=== PATIENT | female | born 1945 | race Caucasian/White ===

== ENCOUNTER → 2016-03-07 | Outpatient (CLI) | payer OTHER ==
[~2016-03-07] MED LIST: ADVIN50050 INH; ASPI-232 PO; IBUP-1050 PO; LOVA20TA4 PO; SPRIN/30 INH; THEO200T27 PO
[2016-03-07 12:05] LABS: BASO % 0.6 %; BASO ABS # 0.04 K/uL (0-0.2); COMPLETE YES; EOS % 4.4 %; HEMATOCRIT 41.1 % (37-47); IG% 0.2 %; LYMPH % 33.4 %; LYMPH ABS # 2.21 K/uL (1.2-3.4); MEAN CELL VOLUME 94.7 fL (80-100); MEAN CORPUSCULAR HGB CONC 33.8 g/dl (32-36); MEAN PLATELET VOLUME 11.6 fL (7.4-10.4); MONO % 5.9 %; NEUT % 55.5 %; PLATELET COUNT 236 K/uL (130-400); RED BLOOD COUNT 4.34 M/uL (4.2-5.4); WHITE BLOOD COUNT 6.61 K/uL (4.8-10.8)
[2016-03-07 12:21] LABS: C-REACTIVE PROTEIN 0.43 mg/dl (0-0.29); RHEUMATOID FACTOR < 10.0 U/mL (0-15)
[2016-03-07 17:46] LABS: LYME DISEASE AB IGG NEG (NEG)
[2016-03-07 17:47] LABS: LYME DISEASE AB IGM NEG (NEG)
[2016-03-10 14:20] LABS: HLA-B27** TC 528X NEGATIVE (NEGATIVE)
== END | disposition home or self-care (01) ==
LOC: C.LABBC 10:03
PROVIDERS: ATTEND Orthopaedic Surgery
DX: M25.40 Effusion, unspecified joint (principal); M25.50 Pain in unspecified joint

== ENCOUNTER → 2016-04-22 | Outpatient (CLI) | payer OTHER ==
[2016-04-22 12:43] LABS: BASO % 0.5 %; BASO ABS # 0.03 K/uL (0-0.2); COMPLETE YES; EOS % 1.9 %; HEMATOCRIT 40.8 % (37-47); IG% 0.2 %; LYMPH % 28.1 %; LYMPH ABS # 1.76 K/uL (1.2-3.4); MEAN CELL VOLUME 94.4 fL (80-100); MEAN CORPUSCULAR HEMOGLOBIN 31.9 pg (25-34); MEAN CORPUSCULAR HGB CONC 33.8 g/dl (32-36); MEAN PLATELET VOLUME 11.6 fL (7.4-10.4); MONO % 8.3 %; PLATELET COUNT 233 K/uL (130-400); RED BLOOD COUNT 4.32 M/uL (4.2-5.4); WHITE BLOOD COUNT 6.27 K/uL (4.8-10.8)
[2016-04-22 12:48] LABS: ESTIMATED AVERAGE GLUCOSE 111 mg/dl; HA1C FLAG Normal (Normal)
[2016-04-22 13:16] LABS: ALT/SGPT 18 U/L (12-78); BLOOD UREA NITROGEN 7 mg/dl (7-18); BUN/CREATININE RATIO 9.6 (10-20); CALCIUM 9.6 mg/dl (8.5-10.1); CARBON DIOXIDE 24 mmol/L (21-32); CHLORIDE 109 mmol/L (98-107); CHOLESTEROL 181 mg/dl (0-200); CREATININE 0.75 mg/dl (0.60-1.20); GLUCOSE 98 mg/dl (70-99); POTASSIUM 3.9 mmol/L (3.5-5.1); SODIUM 142 mmol/L (136-145); TRIGLYCERIDES 132 mg/dl (0-150); VERY LOW DENSITY LIPOPROT CALC 26 mg/dl
[2016-04-22 13:26] LABS: ALB/GLOB RATIO 1.3 (0.9-2); ALKALINE PHOSPHATASE 103 U/L (45-117); AST/SGOT 19 U/L (15-37); CHOLESTEROL/HDL RATIO 2.6; HDL CHOLESTEROL 69 mg/dl; LDL CHOLESTEROL CALCULATED 86 mg/dl
== END | disposition home or self-care (01) ==
LOC: C.LABBFT 08:03
PROVIDERS: ATTEND Internal Medicine
DX: R73.01 Impaired fasting glucose (principal)

== ENCOUNTER → 2016-05-16 | Outpatient (CLI) | payer OTHER ==
--- NOTE | 2016-05-16 09:13 | DIAGNOSTIC IMAGING REPORT ---
LEFT HIP 2 VIEWS HISTORY: Left hip pain. COMPARISON: None. FINDINGS: There is no fracture or dislocation. Soft tissues are unremarkable. The bones are osteopenic. Small sclerotic foci within the left ischial tuberosity and femoral head favor bone islands. Cartilage spaces are maintained for age. IMPRESSION: No fracture or dislocation within the left hip. Electronically signed by: Minesh Haider M.D. 05/16/2016 9:12 AM Dictated Date/Time: 05/16/2016 9:09 AM
--- NOTE | 2016-05-16 09:39 | DIAGNOSTIC IMAGING REPORT ---
LUMBAR SPINE 5 VIEWS HISTORY: Left hip pain. Sciatica. COMPARISON: Lumbar spine 10/08/2012. FINDINGS: No acute fractures within the lumbar spine. Mild anterior wedging within the T10 vertebral body. The sacrum appears intact. No subluxation. Mild disc space narrowing at L5-S1 and moderate facet degenerative changes within the lower lumbar spine. This remains unchanged. IMPRESSION: No acute fracture or subluxation within the lumbar spine. Old T10 mild compression deformity. Electronically signed by: Minesh Haider M.D. 05/16/2016 9:38 AM Dictated Date/Time: 05/16/2016 9:24 AM
== END | disposition home or self-care (01) ==
LOC: C.RAD1850 08:48
PROVIDERS: ATTEND Internal Medicine
DX: M25.552 Pain in left hip (principal); M54.30 Sciatica, unspecified side

== ENCOUNTER → 2016-05-27 | Outpatient (CLI) | payer OTHER ==
--- NOTE | 2016-05-27 10:56 | DIAGNOSTIC IMAGING REPORT ---
CHEST CT WITHOUT CONTRAST CT DOSE: 184.85 mGycm HISTORY: Pulmonary nodules F/U SCAN TECHNIQUE: Multiaxial CT images of the chest were performed without contrast. COMPARISON: 03/12/2015 FINDINGS: Study is essentially stable compared to the prior exam. Pleural-based pulmonary nodularity right lung is stable. Subtle micronodularity of the lingula as well as superior segment right lower lobe is slightly variable but nevertheless stable. No new or interval findings are present. Limited evaluation the upper abdomen is unremarkable. IMPRESSION: Stable exam. Unchanging scattered parenchymal nodularity. No evidence for new interval or progressive process. Electronically signed by: Valdo Munoz M.D. 05/27/2016 10:55 AM Dictated Date/Time: 05/27/2016 10:48 AM
== END | disposition home or self-care (01) ==
LOC: C.CTS 10:30
PROVIDERS: ATTEND Internal Medicine Pulmonary Disease
DX: R91.1 Solitary pulmonary nodule (principal)

== ENCOUNTER → 2016-10-31 | Outpatient (CLI) | payer OTHER ==
[2016-10-31 12:15] LABS: HEMATOCRIT 44.6 % (37-47); MEAN CELL VOLUME 98.5 fL (80-100); MEAN CORPUSCULAR HEMOGLOBIN 31.8 pg (25-34); MEAN CORPUSCULAR HGB CONC 32.3 g/dl (32-36); MEAN PLATELET VOLUME 11.7 fL (7.4-10.4); PLATELET COUNT 255 K/uL (130-400); RED BLOOD COUNT 4.53 M/uL (4.2-5.4); WHITE BLOOD COUNT 6.34 K/uL (4.8-10.8)
[2016-10-31 12:34] LABS: ALT/SGPT 13 U/L (12-78); BLOOD UREA NITROGEN 7 mg/dl (7-18); CALCIUM 9.6 mg/dl (8.5-10.1); CARBON DIOXIDE 26 mmol/L (21-32); CHLORIDE 106 mmol/L (98-107); CHOLESTEROL 189 mg/dl (0-200); CREATININE 0.71 mg/dl (0.60-1.20); GLUCOSE 105 mg/dl (70-99); SODIUM 140 mmol/L (136-145); TRIGLYCERIDES 132 mg/dl (0-150); VERY LOW DENSITY LIPOPROT CALC 26 mg/dl
[2016-10-31 12:43] LABS: ESTIMATED AVERAGE GLUCOSE 120 mg/dl; HA1C FLAG Normal (Normal)
[2016-10-31 12:44] LABS: ALB/GLOB RATIO 1.3 (0.9-2); ALKALINE PHOSPHATASE 111 U/L (45-117); AST/SGOT 14 U/L (15-37); CHOLESTEROL/HDL RATIO 2.6; HDL CHOLESTEROL 72 mg/dl; LDL CHOLESTEROL CALCULATED 91 mg/dl
== END | disposition home or self-care (01) ==
LOC: C.LABBFT 07:52
PROVIDERS: ATTEND Internal Medicine
DX: R73.01 Impaired fasting glucose (principal); I10 Essential (primary) hypertension; E78.00 Pure hypercholesterolemia, unspecified

== ENCOUNTER → 2016-12-08 | Outpatient (CLI) | payer OTHER | END | disposition home or self-care (01) | LOC: C.LAB1850 09:25 | PROVIDERS: ATTEND Internal Medicine Pulmonary Disease | DX: J44.9 Chronic obstructive pulmonary disease, unspecified (principal) ==

== ENCOUNTER → 2017-05-18 | Outpatient (CLI) | payer OTHER ==
[2017-05-18 12:39] LABS: HEMATOCRIT 41.4 % (37-47); HEMOGLOBIN 13.7 g/dL (12.0-16.0); MEAN CELL VOLUME 98.6 fL (80-100); MEAN CORPUSCULAR HEMOGLOBIN 32.6 pg (25-34); MEAN CORPUSCULAR HGB CONC 33.1 g/dl (32-36); MEAN PLATELET VOLUME 11.1 fL (7.4-10.4); PLATELET COUNT 231 K/uL (130-400); RED CELL DISTRIBUTION WIDTH CV 14.7 % (11.5-14.5); RED CELL DISTRIBUTION WIDTH SD 52.7 fL (36.4-46.3); WHITE BLOOD COUNT 5.58 K/uL (4.8-10.8)
[2017-05-18 13:17] LABS: HEMOGLOBIN A1C 5.6 % (4.5-5.6)
[2017-05-18 14:00] LABS: ALBUMIN 3.8 gm/dl (3.4-5.0); ALT/SGPT 24 U/L (12-78); AST/SGOT 26 U/L (15-37); BLOOD UREA NITROGEN 8 mg/dl (7-18); CALCIUM 9.2 mg/dl (8.5-10.1); CARBON DIOXIDE 25 mmol/L (21-32); CREATININE 0.76 mg/dl (0.60-1.20); GLUCOSE 107 mg/dl (70-99); POTASSIUM 3.9 mmol/L (3.5-5.1); SODIUM 138 mmol/L (136-145)
[2017-05-18 14:02] LABS: ALKALINE PHOSPHATASE 102 U/L (45-117); CHOLESTEROL 186 mg/dl (0-200); LDL CHOLESTEROL CALCULATED 90 mg/dl
== END | disposition home or self-care (01) ==
LOC: C.LABBFT 07:31
PROVIDERS: ATTEND Internal Medicine
DX: R73.01 Impaired fasting glucose (principal); J44.9 Chronic obstructive pulmonary disease, unspecified; E78.00 Pure hypercholesterolemia, unspecified

== ENCOUNTER → 2017-09-17 | Outpatient (CLI) | payer OTHER ==
[~2017-09-17] MED LIST changes: +HYDR-5688 PO; -IBUP-1050 PO; +LOSA1TAB38 PO; +NITR-90 PO; -SPRIN/30 INH; -THEO200T27 PO; +THEO400T PO
== END | disposition home or self-care (01) ==
LOC: C.LABSPEC 17:05
PROVIDERS: ATTEND Urology
DX: N31.9 Neuromuscular dysfunction of bladder, unspecified (principal); R33.9 Retention of urine, unspecified

== ENCOUNTER → 2017-09-18 | Outpatient (CLI) | payer OTHER ==
--- NOTE | 2017-09-18 11:13 | DIAGNOSTIC IMAGING REPORT ---
CHEST 2 VIEWS ROUTINE CLINICAL HISTORY: 72 years-old Female presenting with preoperative assessment. TECHNIQUE: PA and lateral views of the chest were obtained. COMPARISON: 11/30/[address] from 05/27/2016. FINDINGS: Atherosclerosis of the aortic arch. Cardiac silhouette normal in size. Hyperinflated lungs. Heterogeneous lung markings with relative radiolucency of the upper lobes. No focal opacity. No pleural effusion or pneumothorax. Osteopenia may be present. Mildly exaggerated thoracic kyphosis due to a mild to moderate compression deformity of one of the mid to lower thoracic vertebral bodies. At this level, there is over 30% anterior height loss. Upper abdomen normal. IMPRESSION: 1. Findings suggest emphysema. No focal infiltrate to suggest pneumonia. 2. Mild to moderate compression deformity of one of the mid to lower thoracic vertebral bodies. This is unchanged from prior CT. Electronically signed by: Ravi Wong M.D. 09/18/2017 11:12 AM Dictated Date/Time: 09/18/2017 11:09 AM
[2017-09-18 11:43] LABS: INR 0.9 (0.9-1.1); PTT PATIENT 28.3 SECONDS (21.0-31.0)
== END | disposition home or self-care (01) ==
LOC: C.CPL 07:07
PROVIDERS: ATTEND Orthopaedic Surgery Orthopaedic Surgery of the Spine
DX: Z01.810 Encounter for preprocedural cardiovascular examination (principal); Z01.811 Encounter for preprocedural respiratory examination; Z01.812 Encounter for preprocedural laboratory examination

== ENCOUNTER 2017-09-28 05:42 | Inpatient (IN) | payer OTHER ==
[2017-09-16 08:23] VITALS: BMI 19.0
[2017-09-18 09:59] VITALS: BMI 19.0
--- NOTE | 2017-09-18 10:23 | PAT Medication Instructions ---
Service Date Sep 18, 2017. Current Home Medication List Aspirin (Aspir-81), 1 TAB PO QAM Fluticasone Prop/Salmeterol (Advair Diskus 500-50 Mcg/Dose), 1 PUFF INH BID Hydrocodone/Acetaminophen 5MG/325MG ([place] 5MG/325MG), 1 TAB PO UD PRN for Pain Losartan Potassium (Cozaar), 100 MG PO QAM Lovastatin (Mevacor), 20 MG PO HS Theophylline (Theophylline ER), 200 MG PO BID Medication Instructions For Your Scheduled Surgery -Instructions per surgeon: Aspirin (Aspir-81), 1 TAB PO QAM - Hold the following medications the morning of surgery: Losartan Potassium (Cozaar), 100 MG PO QAM - Take the following medications the morning of surgery with a sip of water: Fluticasone Prop/Salmeterol (Advair Diskus 500-50 Mcg/Dose), 1 PUFF INH BID Hydrocodone/Acetaminophen 5MG/325MG ([place] 5MG/325MG), 1 TAB PO UD PRN for Pain (if needed, may be taken up to four hours before surgery) Theophylline (Theophylline ER), 200 MG PO BID - Take the following medications as scheduled the night before surgery: Fluticasone Prop/Salmeterol (Advair Diskus 500-50 Mcg/Dose), 1 PUFF INH BID Hydrocodone/Acetaminophen 5MG/325MG ([place] 5MG/325MG), 1 TAB PO UD PRN for Pain (if needed) Lovastatin (Mevacor), 20 MG PO HS Theophylline (Theophylline ER), 200 MG PO BID If you have any questions please call us at [phone] or [phone] or [phone]
--- NOTE | 2017-09-25 16:45 | HISTORY & PHYSICAL EXAMINATION ---
DATE OF ADMISSION: 09/28/2017 Preoperative history and physical for Thursday surgery. CHIEF COMPLAINT: Low back pain, bladder incontinence, lower extremity pain and weakness. HISTORY OF PRESENT ILLNESS: Carlie is a delightful. She is 72. She is severely compromised with stenosis of spine and urinary incontinence and bladder incontinence, particularly with stenosis, particularly 4-5. She denies any fevers, sweats, chills, other medical issues. PAST MEDICAL HISTORY: Includes rheumatoid arthritis, thyroid disease, high cholesterol, hypertension, asthma. PAST SURGICAL HISTORY: Eye surgery, lumbar surgery in the past, hysterectomy. ALLERGIES: LEVOFLOXACIN. FAMILY HISTORY: Heart disease. SOCIAL HISTORY: . Minimal alcohol. Moderate tobacco, 55 year 1 pack history. Little activity. REVIEW OF SYSTEMS: Positive for fatigue. Ear, nose and throat negative. Does admit to some swelling in the feet. Positive asthma. Positive shortness of breath. No nausea, vomiting. Frequent urination and urinary incontinence. She has some lower extremity difficulty, weakness and easy bruisability. MEDICATIONS: Lovastatin, Advair, Spiriva, ibuprofen. OBJECTIVE: GENERAL: She is alert, oriented. She is petite. VITAL SIGNS: She is 5 feet 2 inches. She is 110 pounds. Blood pressure 130/80, pulse 80, respiratory rate 16. CARDIAC: Normal S1, S2, no S3. LUNGS: Clear to auscultation. No rales, rhonchi, or wheezing. ABDOMEN: Soft, nontender. Bowel sounds present. NEUROLOGIC: She has an indwelling Ann catheter. EXTREMITIES: Weak with atrophy of most muscle groups. IMAGES: Demonstrate severe stenosis of the spine, multilevel degenerative disc disease, severe stenosis 3-4, 4-5, degenerative scoliosis of spine. IMPRESSION: Delightful young lady with severe spinal stenosis of the spine and urinary incontinence. PLAN: Surgery laminectomy and fusion L3-L4 and L4-L5.
[~2017-09-28] VITALS: Ht 160 cm; Wt 49.5 kg
[2017-09-28] VITALS (8 sets, daily range): BP systolic 105–165; BP diastolic 60–87; PULSE 68–82; TEMP 36.2–37.1; O2SAT 96–100; Ht 160 cm; Wt 49.5 kg
[~2017-09-28 05:42] MED LIST changes: -NITR-90 PO
[2017-09-28] MEDS ORDERED: LACTATED RINGER'S 1000ML 1,000 ML IV SCH (06:00)
[2017-09-28] MEDS ORDERED: CeleBREX 200 MG CAP PO SCH (06:00)
[2017-09-28] MEDS ORDERED: CEFAZOLIN 2000MG IV PUSH 15 ML IV SCH (06:00)
[2017-09-28] MEDS ORDERED: NSS 1000ML IV SCH (06:00)
[2017-09-28] MEDS ORDERED: ACETAMINOPHEN IV 100 ML IV SCH (06:00)
[2017-09-28] MEDS ORDERED: BUPIVACAINE LIPOSOME 266 MG, BUPIVACAINE/EPINEPHRINE INJ 50 ML, SODIUM CHLORIDE 0.9% PF... INFIL SCH ×3 (06:00)
[2017-09-28] MEDS ORDERED: DEXAMETHASONE 4 MG TAB PO SCH (06:00)
[2017-09-28] MEDS ORDERED: NITR-90 PO (06:50)
[2017-09-28] MEDS ORDERED: VANCOMYCIN HCL 1000MG/20ML VIAL ONE (06:58)
[2017-09-28] MEDS ORDERED: GELATIN SPONGE SZ 100 ONE (06:59)
[2017-09-28] MEDS ORDERED: THROMBIN FOR SOLN 20000 UNIT KIT ONE (06:59)
[2017-09-28] MEDS ORDERED: BACITRACIN 50000 UNIT VIAL ONE (06:59)
[2017-09-28] MEDS ORDERED: BUPIVACAINE/EPINEPHRINE 0.5% MPF 1:200,000 30 ML VIAL ONE (07:00)
[2017-09-28] MEDS ORDERED: NEOSTIGMINE METHYLSULFATE 5 MG/5 ML SYR ONE (07:10)
[2017-09-28] MEDS ORDERED: PHENYLEPHRINE HCL INJ 10 MG/ML VIAL ONE (07:10)
[2017-09-28] MEDS ORDERED: LIDOCAINE HCL 2% 2 ML VIAL (20MG/ML) ONE (07:10)
[2017-09-28] MEDS ORDERED: DEXAMETHASONE SOD INJ 4 MG/ML VIAL ONE (07:10)
[2017-09-28] MEDS ORDERED: GLYCOPYRROLATE INJ 0.2 MG/ML VIAL ONE (07:10)
[2017-09-28] MEDS ORDERED: PROPOFOL IV EMULSION 10 MG/ML 20 ML VIAL ONE (07:10)
[2017-09-28] MEDS ORDERED: ONDANSETRON INJ 2 MG/ML 2 ML VIAL ONE ×2 (07:10→10:26)
[2017-09-28] MEDS ORDERED: SUCCINYLCHOLINE CHLORIDE 20 MG/ML 10 ML VIAL IV ONE (07:10)
[2017-09-28] MEDS ORDERED: EpHEDrine SULFATE INJ 50 MG/ML AMP ONE (07:10)
[2017-09-28] MEDS ORDERED: FENTANYL CITRATE INJ 50 MCG/1 ML 2 ML VIAL ONE (07:11)
--- NOTE | 2017-09-28 07:13 | History & Physical Bridge Note ---
H&P Re-Evaluation Bridge Note: I have examined the patient, reviewed the History & Physical and in the interval since the performance of the History & Physical I have noted the following changes of clinical significance: No changes noted
[2017-09-28] MEDS ORDERED: HYDROmorphone INJ 2 MG/ML SYR/VIAL ONE (08:18)
[2017-09-28] MEDS ORDERED: ALBUMIN HUMAN 5% 12.5 GM/250 ML VIAL IV ONE (09:07)
--- NOTE | 2017-09-28 10:09 | [facility] Post Operative Brief Note ---
Immediate Operative Summary Operative Date Sep 28, 2017. Pre-Operative Diagnosis Severe Spinal Stenosis and Urinary Incontinence Post-Operative Diagnosis Severe Spinal Stenosis and Urinary Incontinence Procedure(s) Performed Decompression L3-S1, L4-S1 Laminectomy and Fusion Surgeon Dr Burgess Principal Account Clerk Surgeon(s) Jerald Blakely PA-C Estimated Blood Loss 400cc Findings Consistent with Post-Op Diagnosis Specimens None per surgeon Anesthesia Type General Overlapping Procedure I was immediately available: during the entire case
[2017-09-28] MEDS ORDERED: SODIUM CHLORIDE 0.9% 1000ML 1,000 ML IV SCH (10:16)
[2017-09-28] MEDS ORDERED: NALOXONE HCL 0.4 MG/1 ML VIAL/CARP IV PRN ×2 (10:30→10:45)
[2017-09-28] MEDS ORDERED: METOCLOPRAMIDE HCL INJ 5 MG/ML 2 ML VIAL IV PRN (10:30)
[2017-09-28] MEDS ORDERED: LORAZEPAM INJ 1 MG in SYRINGE 0 ML IV PRN (10:30)
[2017-09-28] MEDS ORDERED: ACETAMINOPHEN 325 MG TAB PO PRN (10:30)
[2017-09-28] MEDS ORDERED: CEFAZOLIN IV 1,000 MG in DEXTROSE 5% 50ML 50 ML IV SCH (10:30)
[2017-09-28] MEDS ORDERED: MAGNESIUM HYDROXIDE SUSP 30 ML UDC PO PRN (10:30)
[2017-09-28] MEDS ORDERED: LORAZEPAM 1 MG TAB PO PRN (10:30)
[2017-09-28] MEDS ORDERED: PROMETHAZINE HCL INJ 12.5 MG in SODIUM CHLORIDE 0.9% 50ML 50 ML IV PRN ×2 (10:30→10:45)
[2017-09-28 10:45] LABS: HEMATOCRIT 30.5 % (37-47); HEMOGLOBIN 10.3 g/dL (12.0-16.0)
[2017-09-28] MEDS ORDERED: HYDROmorphone INJ 1 MG/ML SYR IV PRN (10:45)
[2017-09-28] MEDS ORDERED: ALBUTEROL 0.083% NEBU SOLN 3 ML VIAL INH PRN (10:45)
[2017-09-28] MEDS ORDERED: FLUMAZENIL 0.1 MG/1 ML 10 ML VIAL IV PRN (10:45)
[2017-09-28] MEDS ORDERED: LABETALOL HCL IV 5 MG/ML 20ML IV PRN (10:45)
[2017-09-28] MEDS ORDERED: EpHEDrine SULFATE INJ 50 MG/ML AMP IV PRN (10:45)
[2017-09-28] MEDS ORDERED: ONDANSETRON INJ 2 MG/ML 2 ML VIAL IV PRN (10:45)
[2017-09-28] MEDS ORDERED: ATROPINE SULFATE 0.1 MG/ML 5ML SYR IV PRN (10:45)
[2017-09-28] MEDS: HYDROmorphone HCL 0.5MG/ML 50 ML CASSETTE IV PRN ×2 (11:00→22:54)
--- NOTE | 2017-09-28 11:14 | DIAGNOSTIC IMAGING REPORT ---
SPINE ONE VIEW, ANY LEVEL HISTORY: 72 years-old Female L3-L4/L4-L5 LAMI AND FUSION status post laminectomy and fusion of the lower lumbar spine COMPARISON: Lumbar spine radiographs 09/11/2017 TECHNIQUE: Single crosstable lateral fluoroscopic image of the lumbar spine was obtained utilizing 3.5 seconds fluoroscopy time FINDINGS: Single image demonstrates laminectomy changes with placement of posterior pedicle screws at the L4, L5 and S1 levels. Alignment appears satisfactory. Multilevel spondylitic spurring. IMPRESSION: Fluoroscopic assistance as above. Please see operative report for further details. The above report was generated using voice recognition software. It may contain grammatical, syntax or spelling errors. Electronically signed by: Arnoldo Steven M.D. 09/28/2017 11:13 AM Dictated Date/Time: 09/28/2017 11:11 AM
--- NOTE | 2017-09-28 11:33 | OPERATIVE REPORT ---
DATE OF OPERATION: 09/28/2017 PREOPERATIVE DIAGNOSES: Severe stenosis L3-L4, L4-L5 lumbar spine with cauda equina symptoms, neurological deficit, bladder incontinence. POSTOPERATIVE DIAGNOSES: Severe stenosis L3-L4, L4-L5 lumbar spine with cauda equina symptoms, neurological deficit, bladder incontinence. PROCEDURES: 1. Laminectomy at L3-L4, L4-L5 and L5-S1, foraminotomies, partial facetectomies, decompression of the cauda equina. 2. Pedicle screw instrumentation, L4, L5 and S1. I felt that the L3-L4 level was not unstable. 3. Posterior fusion, L3, L4, and L5 lumbar spines with 2-level posterolateral fusion. COMPLICATIONS: Zero. BLOOD LOSS: 400. SURGEON: Dr. Burgess. ALTERATION MANAGER: Jerald Blakely PA-C. ANESTHETIC: General. DESCRIPTION OF PROCEDURE: The patient was taken to the operating room. A formal timeout obtained. Prior to this, we turned her supine, prepped and draped sterile. We again took the formal timeout. We made a skin incision, fascial incision, carefully getting down to the lamina of the spine. We decompressed the neural elements which was the lamina 5, 4 and up to 3 to a 3-level decompression procedure, foraminotomies, partial facetectomies. We took out an abundant amount of bone and ligamentum flavum. She actually had a pinpoint canal. We irrigated. We then carefully were able to get pedicle screws placed in the pedicles of L4, L5 and S1. I felt we really secured the spine and prevented further deficits. We tightened down the construct, irrigated thoroughly, bone grafted out of the transverse processes, began our closure over vancomycin and bone graft with 1 Vicryl, 2-0 and 3-0 on the skin. Sterile dressings applied. The patient returned to PACU improved, stable. Sponge and needle count correct. No complications. The patient was brought to recovery room satisfactory and stable. I attest to the content of the Intraoperative Record and any orders documented therein. Any exception s are noted below.
--- NOTE | 2017-09-28 11:50 | Anesthesiology Progress Note ---
Anesthesia Post Op Note Date & Time Sep 28, 2017 at 11:49 Vital Signs Pain Intensity: 3 Vital Signs Past 12 Hours Date Time Temp Pulse Resp B/P (MAP) Pulse Ox O2 Delivery O2 Flow Rate FiO2 09/28/17 11:36 114/55 09/28/17 11:34 56 16 09/28/17 11:34 55 16 99 09/28/17 11:32 106/83 09/28/17 11:29 58 11 09/28/17 11:29 57 11 100 09/28/17 11:28 57 11 09/28/17 11:28 57 11 100 09/28/17 11:26 123/58 09/28/17 11:23 69 16 100 09/28/17 11:23 63 16 09/28/17 11:21 111/58 09/28/17 11:18 57 13 09/28/17 11:18 58 13 100 09/28/17 11:16 119/59 09/28/17 11:13 70 19 09/28/17 11:13 70 19 100 09/28/17 11:11 114/64 09/28/17 11:08 36.5 64 18 114/64 99 Nasal Cannula 4 Oxymask 09/28/17 11:08 53 13 09/28/17 11:08 53 13 98 09/28/17 11:06 118/60 09/28/17 11:03 66 21 09/28/17 11:03 66 21 99 09/28/17 11:01 122/61 09/28/17 10:58 61 14 98 09/28/17 10:58 61 14 09/28/17 10:56 118/55 09/28/17 10:53 61 2 09/28/17 10:53 61 2 99 09/28/17 10:52 64 21 99 09/28/17 10:52 65 21 09/28/17 10:51 120/60 09/28/17 10:47 66 16 100 09/28/17 10:47 66 16 09/28/17 10:46 131/59 09/28/17 10:42 69 12 09/28/17 10:42 68 12 100 09/28/17 10:41 122/59 09/28/17 10:37 70 22 09/28/17 10:37 70 22 100 09/28/17 10:36 128/57 09/28/17 10:33 104/54 09/28/17 10:32 78 21 09/28/17 10:32 81 21 82 09/28/17 10:27 70 13 09/28/17 10:27 71 13 116/57 100 09/28/17 10:22 70 16 09/28/17 10:22 77 16 99 09/28/17 10:21 126/63 09/28/17 10:19 138/68 09/28/17 10:19 138/68 09/28/17 10:17 36.1 78 16 126/63 (81) 100 Oxymask 10 09/28/17 06:09 36.6 71 20 165/87 98 Room Air Notes Mental Status: alert / awake / arousable, participated in evaluation Pt Amnestic to Procedure: Yes Nausea / Vomiting: adequately controlled Pain: adequately controlled Airway Patency, RR, SpO2: stable & adequate BP & HR: stable & adequate Hydration State: stable & adequate Anesthetic Complications: no major complications apparent
[2017-09-28] MEDS: SODIUM CHLORIDE 0.9% 1000ML 1,000 ML IV SCH ×2 (13:33→23:51)
[2017-09-28] MEDS ORDERED: NURSING VERBAL MED ORDER ONE (14:15)
[2017-09-28] MEDS: NICOTINE 21 MG/24 HR TDSY EXT SCH (14:33)
[2017-09-28] MEDS: DEXAMETHASONE INJ 10 MG in SYRINGE 0 ML IV SCH ×2 (16:45→23:50)
[2017-09-28] MEDS: CEFAZOLIN IV 1,000 MG in SYRINGE 0 ML IV SCH ×2 (16:45→23:51)
--- NOTE | 2017-09-28 17:59 | Medical Consult ---
Consultation Date of Consultation: Sep 28, 2017. Attending Physician: Pedro Luis Burgess DO Reason for Consultation: Medical Management History of Present Illness Pt underwent a Decompression of L3-S1, L4-S1 Laminectomy and Fusion today by Dr. Burgess. Called for consult on medication management. Pt has a AGING ROOM HAND for her recent spinal surgery. Denies any other complaints. We did review medications - her meds are not memorized however she was able to identify that she took a baby aspirin,, Losartan, Advair BID, Statin and likely Theophylline. Is a current smoker of 1.5 packs per day. She has been smoking since age 13, more since her children moved out of the house. Without her inhalers she becomes SOB. She is currently on oxygen but not on oxygen at home. Family History Cancer Heart disease Hypertension Lung disease Social History Smoking Status: Current Every Day Smoker Marital Status: Housing Status: lives with family Occupation Status: retired Allergies Coded Allergies: Levofloxacin (Verified Allergy, Unknown, RASH/HIVES, 09/28/17) Home Medications Reported Home Medications Medications Dose Route/Sig Max Daily Dose Days Date Category Dose Instructions Nitrofurantoin Macrocryst (Nitrofurantoin Macrocrystal) 100 Mg Cap 100 Mg PO BID 09/28/17 Reported [place] 5MG/325MG (Acetaminophen/Hydrocodone Bitart) Tab 1 Tab PO UD PRN 09/16/17 Reported PRN PAIN Cozaar (Losartan Potassium) 100 Mg Tab 100 Mg PO QAM 09/16/17 Reported Theophylline ER (Theophylline) 400 Mg Tabcr 200 Mg PO BID 09/04/17 Reported Aspir-81 (Aspirin) 81 Mg Tab 1 Tab PO QAM 90 03/19/15 Reported PT INSTRUCTED TO CONTACT SURGEON OFFICE FOR PRE OP INSTRUCTIONS REGARDING USE OF THIS MED - PT VOICES UNDERSTANDING Advair Diskus 500-50 Mcg/Dose (Fluticasone Prop/Salmeterol) 14 Puff/1 Inhaler Aerp 1 Puff INH BID 11/30/14 Reported Mevacor (Lovastatin) 20 Mg Tab 20 Mg PO HS 10/08/12 Reported Current Inpatient Medications Current Inpatient Medications Medications (Trade) Dose Ordered Sig/Ludin Route Start Time Stop Time Status Last Admin Dose Admin Lactated Ringer's 1,000 ml @ 15 mls/hr Q24H IV 09/28/17 06:00 09/29/17 05:59 09/28/17 06:43 15 MLS/HR Sodium Chloride 1,000 ml @ 15 mls/hr Q24H IV 09/28/17 06:00 09/29/17 05:59 Cefazolin Sodium 15 ml @ 3.75 mls/ min PREOP IV 09/28/17 06:00 09/28/17 18:00 09/28/17 07:25 3.75 MLS/MIN Celecoxib (CeleBREX CAP) 200 mg PREOP PO 09/28/17 06:00 09/28/17 18:00 09/28/17 06:43 200 MG Dexamethasone (Decadron Tab) 8 mg PREOP PO 09/28/17 06:00 09/28/17 18:00 09/28/17 06:43 8 MG Bupivacaine Liposome 266 mg/ Bupivacaine HCl/ Epinephrine Bitart 50 ml/ Sodium Chloride 30 ml/Syringe 100 ml @ 0 mls/hr 06 INFIL 09/28/17 06:00 09/28/17 18:00 Diphenhydramine HCl (Benadryl Cap) 25 mg Q6H PRN PO 09/28/17 10:30 10/28/17 10:29 Magnesium Hydroxide (Milk Of Magnesia Susp) 30 ml DAILY PRN PO 09/28/17 10:30 10/28/17 10:29 Bisacodyl (Dulcolax Supp) 10 mg DAILY PRN CA 09/29/17 06:00 10/29/17 05:59 Bisacodyl (Dulcolax Tab) 5 mg DAILY PRN PO 09/29/17 06:00 10/29/17 05:59 Polyethylene (Miralax Powder Packet) 17 gm DAILY PO 09/29/17 09:00 10/29/17 08:59 Lorazepam 1 mg/ Syringe 0.5 ml @ 1 mls/min Q6H PRN IV 09/28/17 10:30 10/28/17 10:29 Lorazepam (Ativan Tab) 1 mg Q6H PRN PO 09/28/17 10:30 10/28/17 10:29 Metoclopramide HCl (Reglan Inj) 10 mg Q6H PRN IV 09/28/17 10:30 10/28/17 10:29 Ondansetron HCl (Zofran Inj) 4 mg Q6H PRN IV 09/28/17 10:30 10/28/17 10:29 Promethazine HCl 12.5 mg/Sodium Chloride 50.5 ml @ 202 mls/hr Q6H PRN IV 09/28/17 10:30 10/28/17 10:29 09/28/17 11:20 202 MLS/HR Hydromorphone HCl (Dilaudid Inj) 1.5 mg Q3H PRN IV 09/29/17 08:00 10/13/17 07:59 Oxycodone/ Acetaminophen (Percocet 5-325mg Tab) 2 tab Q4H PRN PO 09/29/17 08:00 10/13/17 07:59 Hydromorphone HCl (Dilaudid Inj) 1 mg Q3H PRN IV 09/29/17 08:00 10/13/17 07:59 Oxycodone/ Acetaminophen (Percocet 5-325mg Tab) 1 tab Q4H PRN PO 09/29/17 08:00 10/13/17 07:59 Miscellaneous Information (Discontinue AGING ROOM HAND) 1 ea TODAY@0800 ONCE N/A 09/29/17 08:00 09/29/17 08:01 Acetaminophen (Tylenol Tab) 650 mg Q6H PRN PO 09/28/17 10:30 10/28/17 10:29 Dexamethasone Sodium Phosphate 10 mg/Syringe 2.5 ml @ 1 mls/min Q8H IV 09/28/17 16:00 09/30/17 00:03 Sodium Chloride 1,000 ml @ 80 mls/hr [id number] IV 09/28/17 13:30 10/28/17 13:29 09/28/17 13:33 80 MLS/HR Aspirin (Ecotrin Tab) 81 mg QAM PO 09/29/17 09:00 10/29/17 08:59 Salmeterol Xinafoate/ Fluticasone (Advair Diskus 500/50 Inh) 1 puff BID INH 09/28/17 21:00 10/28/17 20:59 Losartan Potassium (coZAAR TAB) 100 mg QAM PO 09/29/17 09:00 10/29/17 08:59 Lovastatin (Mevacor Tab) 20 mg HS PO 09/28/17 21:00 10/28/17 20:59 Theophylline (Theophylline Er) 200 mg BID PO 09/28/17 21:00 10/28/17 20:59 Nitrofurantoin Macrocrystals (Macrobid Cap) 100 mg BID PO 09/28/17 21:00 09/30/17 23:59 Naloxone HCl (Narcan Inj) 0.1 mg Q5M PRN IV 09/28/17 10:30 09/29/17 08:00 Hydromorphone HCl (Dilaudid Shiftman) 0.5 mg PRN PRN IV 09/28/17 10:30 09/29/17 08:00 09/28/17 11:00 0.25 MG Sodium Chloride 1,000 ml @ 15 mls/hr Q24H IV 09/28/17 10:16 09/29/17 08:00 Hydromorphone HCl (Dilaudid Inj) 0.25 mg Q5M PRN IV 09/28/17 10:45 09/28/17 15:45 Naloxone HCl (Narcan Inj) 0.2 mg Q2M PRN IV 09/28/17 10:45 09/28/17 15:45 Flumazenil (Romazicon Inj) 0.2 mg Q2M PRN IV 09/28/17 10:45 09/28/17 15:45 Ondansetron HCl (Zofran Inj) 4 mg ONE PRN IV 09/28/17 10:45 09/28/17 15:45 Promethazine HCl 12.5 mg/Sodium Chloride 50.5 ml @ 202 mls/hr ONE PRN IV 09/28/17 10:45 09/28/17 15:45 Labetalol HCl (Normodyne IV) 5 mg Q5M PRN IV 09/28/17 10:45 09/28/17 15:45 Ephedrine Sulfate (EpHEDrine SULFATE INJ) 5 mg Q5M PRN IV 09/28/17 10:45 09/28/17 15:45 Atropine Sulfate (Atropine Sulfate 0.1mg/ml Inj) 0.5 mg Q1M PRN IV 09/28/17 10:45 09/28/17 15:45 Albuterol Sulfate (Ventolin 0.083% 2.5MG/3ML Neb) 2.5 mg ONE PRN INH 09/28/17 10:45 09/28/17 15:45 Cefazolin Sodium 1000 mg/Syringe 7.5 ml @ 2.5 mls/min Q8H IV 09/28/17 16:00 09/29/17 08:02 Nicotine (Nicoderm Cq 21MG Patch) 1 patch QAM EXT 09/28/17 14:30 10/28/17 14:29 Miscellaneous (Remove Nicoderm Patch) 1 ea QAM N/A 09/29/17 09:00 10/29/17 08:59 Review of Systems Constitutional: No fever, No chills Respiratory: No cough, No sputum, No wheezing, No shortness of breath, No dyspnea on exertion Cardiovascular: No chest pain Abdomen: No pain, No nausea, No vomiting, No diarrhea, No constipation Musculoskeletal: No joint pain Genitourinary - Female: No dysuria Endocrine: No fatigue Physical Exam Date Time Temp Pulse Resp B/P (MAP) Pulse Ox O2 Delivery O2 Flow Rate FiO2 09/28/17 14:10 36.9 78 16 124/76 (92) 98 Nasal Cannula 2.0 09/28/17 13:08 75 16 132/78 (96) 100 Nasal Cannula 4.0 09/28/17 12:38 68 16 114/64 (81) 100 Nasal Cannula 4.0 09/28/17 12:10 36.5 68 18 110/60 (77) 96 Nasal Cannula 4.0 09/28/17 12:10 96 Nasal Cannula 4.0 09/28/17 12:10 Nasal Cannula 4.0 09/28/17 11:57 63 11 100 09/28/17 11:57 63 11 09/28/17 11:56 115/54 09/28/17 11:52 71 11 09/28/17 11:52 72 11 100 09/28/17 11:51 114/54 09/28/17 11:47 72 18 100 09/28/17 11:47 73 18 09/28/17 11:46 108/59 09/28/17 11:42 60 11 09/28/17 11:42 60 11 100 09/28/17 11:41 100/52 09/28/17 11:37 60 12 09/28/17 11:37 60 12 100 09/28/17 11:36 114/55 09/28/17 11:34 56 16 09/28/17 11:34 55 16 99 09/28/17 11:32 106/83 09/28/17 11:29 58 11 09/28/17 11:29 57 11 100 09/28/17 11:28 57 11 09/28/17 11:28 57 11 100 18 11:26 123/58 09/28/17 11:23 69 16 100 09/28/17 11:23 63 16 09/28/17 11:21 111/58 09/28/17 11:18 57 13 09/28/17 11:18 58 13 100 09/28/17 11:16 119/59 09/28/17 11:13 70 19 09/28/17 11:13 70 19 100 09/28/17 11:11 114/64 09/28/17 11:08 36.5 64 18 114/64 99 Nasal Cannula 4 Oxymask 09/28/17 11:08 53 13 09/28/17 11:08 53 13 98 09/28/17 11:06 118/60 09/28/17 11:03 66 21 09/28/17 11:03 66 21 99 09/28/17 11:01 122/61 09/28/17 10:58 61 14 98 09/28/17 10:58 61 14 09/28/17 10:56 118/55 09/28/17 10:53 61 2 09/28/17 10:53 61 2 99 09/28/17 10:52 64 21 99 09/28/17 10:52 65 21 09/28/17 10:51 120/60 09/28/17 10:47 66 16 100 09/28/17 10:47 66 16 09/28/17 10:46 131/59 18 10:42 69 12 09/28/17 10:42 68 12 100 18 10:41 122/59 09/28/17 10:37 70 22 09/28/17 10:37 70 22 100 18 10:36 128/57 18 10:33 104/54 09/28/17 10:32 78 21 09/28/17 10:32 81 21 82 09/28/17 10:27 70 13 09/28/17 10:27 71 13 116/57 100 09/28/17 10:22 70 16 09/28/17 10:22 77 16 99 09/28/17 10:21 126/63 09/28/17 10:19 138/68 09/28/17 10:19 138/68 09/28/17 10:17 36.1 78 16 126/63 (81) 100 Oxymask 10 09/28/17 06:09 36.6 71 20 165/87 98 Room Air General Appearance: WD/WN, no apparent distress Head: normocephalic, atraumatic Eyes: normal inspection, PERRL Neck: supple Respiratory/Chest: chest non-tender, lungs clear, no respiratory distress, no accessory muscle use, + pertinent finding (decreased breath sounds) Cardiovascular: regular rate, rhythm, no edema, no gallop, no JVD, no murmur, normal peripheral pulses Abdomen/GI: normal bowel sounds, non tender, soft, no organomegaly, no pulsatile mass Back: normal inspection, no CVA tenderness, no muscle spasm, normal range of motion Extremities/Musculoskelatal: no calf tenderness, normal capillary refill, no pedal edema Neurologic/Psych: house visitor II-XII nml as tested, no motor/sensory deficits, alert, normal mood/affect, normal reflexes, oriented x 3 Laboratory Results Last 24 Hours Test 09/28/17 10:38 Hemoglobin 10.3 g/dL Hematocrit 30.5 % Assessment & Plan 72F s/o Laminectomy on 09/28/2017. POD #0. s/p Laminectomy Defer to Dr. Burgess for pain control and anticoagulation. COPD Pt has an oxygen requirement in the setting of over 40pack year smoking history , she uses Advair BID and states she doesn't use Albuterol because it's too expensive. We will use Advair BID + Albuterol PRN. C/w theophylline 200mg BID. Incentive spirometry. If oxygen requirement persists this is likely the patient's baseline, she will need a two step before discharge to get home oxygen. HTN Normotensive, holding Losartan. Primary Prevention Pt advised to take an ASA for primary prevention. Holding in light of pt's recent spine surgery. Diet: Regular Dispo: Med Surg DVT Proph: Defer to primary team FULL CODE Resident Involvement: Resident Care Provided Care Provided: Adult Hospital Medicine Reviewed: Pt Seen/Exam by Mn History 72 y/o s/p Decompression of L3-S1, L4-S1 Laminectomy and Fusion Constitutional: denies: fever Respiratory: negative: short of breath Cardiovascular: denies chest pain Gastrointestinal/Abdominal: negative: abdominal pain General Appearance: no apparent distress Respiratory: lungs clear, no respiratory distress Cardiovascular: regular rate, rhythm Extremities: no pedal edema Neurologic/Psychiatric: alert, oriented x 3 Skin Characteristics: warm/dry Assessment/Plan Resident Physician Supervision Note: I independently interviewed and examined the patient and verified the aguilar history and physical, reviewed labs and image studies, discussed the case with the resident Dr. Ahuja and agree with the findings and care plan.
[2017-09-28] MEDS: ONDANSETRON INJ 2 MG/ML 2 ML VIAL IV PRN (18:12)
[2017-09-28] MEDS ORDERED: FLUTICASONE/SALMETEROL (ADVAIR) 500/50 INH 14 PUFF INH SCH (19:00)
[2017-09-28] MEDS ORDERED: NURSING DECISION MEDICATION ORDER SCH (19:45)
[2017-09-28] MEDS ORDERED: COUGH DROP (SUGAR FREE) LOZ 24 LOZ/1 BOX LOZ PRN (19:45)
[2017-09-28] MEDS: FLUTICASONE/SALMETEROL (ADVAIR) 500/50 INH 14 PUFF INH SCH (20:38)
[2017-09-28] MEDS: NITROFURANTOIN MONOHYDRATE 100 MG CAP PO SCH (20:40)
[2017-09-28] MEDS: THEOPHYLLINE 400 MG EXTENDED REL TAB PO SCH (20:40)
[2017-09-28] MEDS ORDERED: LOVASTATIN 20 MG TAB PO SCH (21:00)
[2017-09-28] MEDS ORDERED: THEOPHYLLINE 400 MG EXTENDED REL TAB PO SCH (21:00)
[2017-09-29 03:15] VITALS: BP 118/67; PULSE 68; TEMP 37; O2SAT 98
[2017-09-29] MEDS ORDERED: BISACODYL 5 MG TABEC PO PRN (06:00)
[2017-09-29] MEDS ORDERED: BISACODYL 10 MG SUPP PR PRN (06:00)
--- NOTE | 2017-09-29 06:25 | Clinical Documentation Query ---
CLINICAL DOCUMENTATION QUERY Dr. ELIZONDO, In your clinical opinion is this patient being managed for: ( ) Acute blood loss anemia ( ) Not Agree ( ) Other explanation of clinical findings (No explanation is considered a No Response) ( ) Unable to determine ( ) Need to Discuss (Phone CDS or qliq) (No discussion is considered a No Response) The medical record reflects the following clinical findings, treatment, and risk factors. Clinical Indicators: 72 yo female presenting with severe spinal stenosis. Baseline Hgb 13.8, Hct 41.3, dropping to 10.3/30.5. EBL of 400 cc with additional 155 cc hemovac drainage. Treatment: monitor H/H, IV fluids Risk Factors: expected surgery related blood loss Please clarify and document your clinical opinion in the progress notes and discharge summary. Terms such as "probable", "suspected", "likely", "questionable", "possible", or "still to be ruled out" are acceptable. IF IN AGREEMENT, YOU MUST DOCUMENT ABOVE DIAGNOSTIC STATEMENT IN DAILY PROGRESS NOTES AND DISCHARGE SUMMARY. This document is not part of the patient's record. Thank You, Chio Peres, LEONOR [phone]
[2017-09-29] MEDS ORDERED: HYDROmorphone INJ 2 MG/ML SYR/VIAL IV PRN (08:00)
[2017-09-29] MEDS ORDERED: OXYCODONE/ACETAMINOPHEN 5-325 TAB PO PRN (08:00)
[2017-09-29] MEDS ORDERED: HYDROmorphone INJ 0.5 MG/0.5 ML SYR IV PRN (08:00)
[2017-09-29] MEDS ORDERED: DC PCA ONE (08:00)
[2017-09-29 08:10] VITALS: BP 115/66; PULSE 72; TEMP 36.9; O2SAT 96
[2017-09-29] MEDS: DEXAMETHASONE INJ 10 MG in SYRINGE 0 ML IV SCH ×2 (08:25→15:47)
[2017-09-29] MEDS: ASPIRIN 81 MG ECTAB PO SCH (08:25)
[2017-09-29] MEDS: FLUTICASONE/SALMETEROL (ADVAIR) 500/50 INH 14 PUFF INH SCH ×2 (08:25→20:39)
[2017-09-29] MEDS: NICOTINE 21 MG/24 HR TDSY EXT SCH (08:25)
[2017-09-29] MEDS: THEOPHYLLINE 400 MG EXTENDED REL TAB PO SCH ×2 (08:25→20:39)
[2017-09-29] MEDS: POLYETHYLENE (MIRALAX) 17 GM PACK PO SCH (08:26)
[2017-09-29] MEDS: NITROFURANTOIN MONOHYDRATE 100 MG CAP PO SCH ×2 (08:26→20:39)
[2017-09-29] MEDS: LOSARTAN POTASSIUM 50 MG TAB PO SCH (08:26)
[2017-09-29] MEDS: CEFAZOLIN IV 1,000 MG in SYRINGE 0 ML IV SCH (08:29)
[2017-09-29] MEDS ORDERED: NURSING DECISION MEDICATION ORDER SCH (08:45)
--- NOTE | 2017-09-29 09:29 | Family Medicine Progress Note ---
Progress Note Date of Service Sep 29, 2017. Subjective Pt evaluation today including: conversation w/ patient, physical exam, chart review, lab review Pt states that she ate breakfast. She still has a adams in place. Her only complaint is hip pain which she states is chronic. Pt was ambulating earlier today with assistance. Constitutional: No fever, No chills ENT: No hearing loss Respiratory: No cough, No sputum, No wheezing, No shortness of breath Cardiovascular: No chest pain Abdomen: + problem reported (has adams), No pain, No nausea, No vomiting, No diarrhea, No constipation Neurologic: No memory loss Objective Physical Exam Notes: General Appearance: WD/WN, no apparent distress Head: normocephalic, atraumatic Eyes: normal inspection, PERRL Neck: supple Respiratory/Chest: chest non-tender, lungs clear, no respiratory distress, no accessory muscle use, + pertinent finding (decreased breath sounds bilaterally) Cardiovascular: regular rate, rhythm, no edema, no gallop, no JVD, no murmur, normal peripheral pulses Abdomen/GI: normal bowel sounds, non tender, soft, no organomegaly, no pulsatile mass Back: normal inspection, no CVA tenderness, no muscle spasm, normal range of motion Extremities/Musculoskelatal: no calf tenderness, normal capillary refill, no pedal edema, s/p R hip fx repair 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 Burgess on 09/28/2017. POD # 1. s/p Laminectomy Defer to Dr. Burgess for pain control and anticoagulation. COPD 2/2 40+ pk year smoking history. Has been weaned onto room air. c/w Advair BID + Albuterol PRN. C/w theophylline 200mg BID. c/w Incentive spirometry. HTN Normotensive, holding Losartan. Primary Prevention Pt advised to take an ASA for primary prevention. Holding in light of pt's recent spine surgery. Diet: Regular Dispo: Med Surg DVT Proph: Defer to primary team FULL CODE Resident Involvement: Resident Care Provided Care Provided: Adult Hospital Medicine Reviewed: Pt Seen/Exam by Me History no new concerns Constitutional: denies: fever Respiratory: negative: short of breath Cardiovascular: denies chest pain General Appearance: no apparent distress Respiratory: lungs clear, no respiratory distress Cardiovascular: regular rate, rhythm Neurologic/Psychiatric: alert, oriented x 3 Skin Characteristics: warm/dry Assessment/Plan Resident Physician Supervision Note: I independently interviewed and examined the patient and verified the aguilar history and physical, reviewed labs and image studies, discussed the case with the resident Dr. Ahuja and agree with the findings and care plan.
--- NOTE | 2017-09-29 10:11 | ORTHOPEDICS PROGRESS NOTE ---
DATE: 09/29/2017 SUBJECTIVE: She is alert, oriented. No chest pain, shortness of breath, confusion. OBJECTIVE: Vital signs stable. No major complaints. Still weak to the extremities. IMPRESSION: Status post spinal stenosis surgery. She is now out about 20 hours from major lumbar reconstructive surgery yesterday that was done on the . PLAN: Tentatively will get up on her feet today. She is mandatory. She goes to a rehabilitation center. Discharge should be accomplished either tomorrow which is Thursday or .
[2017-09-29] MEDS: OXYCODONE/ACETAMINOPHEN 5-325 TAB PO PRN ×2 (10:27→16:45)
--- NOTE | 2017-09-29 10:30 | Anesthesiology Progress Note ---
Anesthesia Post Op Note Date & Time Sep 29, 2017 at 10:30 Vital Signs Vital Signs Past 12 Hours Date Time Temp Pulse Resp B/P (MAP) Pulse Ox O2 Delivery O2 Flow Rate FiO2 09/29/17 08:10 36.9 72 16 115/66 (82) 96 Room Air 09/29/17 07:39 Nasal Cannula 2.0 09/29/17 03:15 37.0 68 16 118/67 (84) 98 Nasal Cannula 2.0 09/28/17 23:25 Nasal Cannula 2.0 09/28/17 23:20 37.1 75 16 109/66 (80) 97 Nasal Cannula 2.0 Notes Mental Status: alert / awake / arousable, participated in evaluation Pt Amnestic to Procedure: Yes Nausea / Vomiting: adequately controlled Pain: adequately controlled Airway Patency, RR, SpO2: stable & adequate BP & HR: stable & adequate Hydration State: stable & adequate Anesthetic Complications: no major complications apparent
[2017-09-29 11:27] VITALS: BP 116/65; PULSE 78; TEMP 36.8; O2SAT 96
[2017-09-29 15:02] VITALS: BP 116/68; PULSE 78; TEMP 36.6; O2SAT 97
[2017-09-29] MEDS: LOVASTATIN 20 MG TAB PO SCH (16:45)
--- NOTE | 2017-09-29 17:04 | Discharge Instructions ---
Discharge Instructions Date of Service Sep 29, 2017. Admission Reason for Admission: Lumbar Spinal Stenosis Discharge Discharge Diagnosis / Problem: same Discharge Goals Goal(s): Improve function Activity Recommendations Activity Limitations: as noted below Lifting Limitations: no more than 5 pounds, gradually increase as tolerated Exercise/Sports Limitations: until after follow-up appointment May Resume Sexual Activity: after follow-up appointment Shower/Bathe: keep incision dry . Instructions / Follow-Up Instructions / Follow-Up MEDICATIONS: Please take your prescriptions as instructed at your pre-op appointment. SPECIAL CARE: The following information is intended to answer some of the common questions and concerns regarding your surgery. Each patient is an individual and receives individual counselling throughout the course of treatment, from diagnosis to surgery all the way through recovery. What follows is not an exhaustive list, but should be a useful guide to some of the common questions and concerns patients have regarding their surgeries. These are not provided to keep you from calling us; rather, they give you something accurate and concrete to reference as you recover from your procedure. If you need us, we are available to you. As always, if you are not sure about something, call us at [phone]. MEDICAL EMERGENCIES: For these conditions, call 911 or go to your local hospital-based Emergency Department - not [facility] or equivalent. * Paralysis * Severe chest pain or difficulty breathing * Swelling or redness of either leg Spine procedures can be rather complex and though complications are rare, they do occur. In such cases, effective advice regarding emergency situations cannot always be addressed over the telephone. You may be referred to the emergency department for more effective management of your problem. Activity Limitations: It is important to give your body time to heal, so please limit your activities : * In general, don't do anything that moves your spine too much. You should avoid contact sports, twisting or heavy lifting while you recover. * 5-10 pounds is all you should attempt to lift. * You should not plan on driving for approximately 3 weeks and you should avoid traveling more than 30-45 minutes at a time. Longer trips should be broken down with walking breaks spaced appropriately. * Physical therapy is not usually required. * Walking and good posture practices will help you recover and regain your function. * Avoid straining or sudden changes in position. * In general, the goal is to take it easy and recover. Don't cause any new problems. Just relax. Showers: * Do not take a bath, use a Jacuzzi or hot tub or otherwise submerge your incision. * It is usually safe to take a shower 4-5 days after your surgery. * Your incision does not require any special creams or ointments. * Simply clean it with soap and water, dry and re-dress with a clean bandage afterwards. Incision: * Keep incision clean, dry and protected until your first follow-up appointment. * Some amount of drainage and redness is normal. Any drainage should be fairly clear and not have a foul odor. * If you feel anything is wrong or you have excessive drainage, please call us. * Your stitches and erasmo will be removed 10-14 days after your surgery. At the time of your first post-op visit. * Neck surgeries are typically closed with a suture underneath the skin. The steri-strips over the incision should be maintained until we see you in the office. Bracing: * You may be provided with a back or neck brace to encourage good posture and prevent injury. It will remind you not to do too much as you heal and will alert others to the fact that you have had a surgery. * Back braces may be removed for showers and when you are resting at home. They must be worn when you are walking around for any period of time or for travel. * For neck surgery, you will likely be provided with two cervical collars. The soft collar ([place] or foam rubber) is worn most commonly throughout the day and while sleeping. The plastic collar (provided at the hospital) is for showering/bathing. * Except while eating, collars should remain in place. More specifically, bracing is provided for a purpose and should be worn. * Please obtain your brace or collars prior to your operation and bring them to the hospital with you on the day of surgery. * You should also bring your collars to your post-op appointment with Dr. Burgess. You should always take good care of your body and practice healthy habits, especially following surgery. You should: * Follow your doctor's treatment plan * Sit and stand properly with good posture (ears over shoulders, shoulders over hips) Don't slouch * Learn to lift correctly * Exercise regularly (low-impact aerobic exercise is especially good, but check with your doctor first) * Generally, be up and walking for 5-10 minutes at a time at least 3-4 times per day from the day you get home * Increasing walking to tolerance until you can walk for 20-30 minutes at a time * Attain and maintain a healthy body weight * Eat healthy foods ( a well-balanced, low-fat diet rich in fruits and vegetables) and get enough calcium * Avoid excessive use of alcohol When to call our office - If you notice any of the following: * Increased pain not relieve by pain medicine * Fevers greater then 100 degrees F, chills or flu symptoms * Increased redness around incision * Drainage from the incision that is not clear * Any foul smelling drainage * Swelling or fluid collection beneath the skin Miscellaneous: * In the hospital, you may be given a walker or cane for support while walking. These are temporary needs and are intended to prevent injuries due to falls. You may discontinue them when you feel strong and steady enough on your feet. * Sleep in a comfortable position. We find that many patients find a lounge chair or recliner with several pillows to be beneficial in the early post-operative period. * The support stockings should be used for 7-10 days and may be discontinued when you are back to walking more and conducting usual household activities. No problem is insignificant. We are here to help you and get you well. Contact us at [phone]. Definitions: Foraminotomy: If part of the disc or a bone spur (osteophyte) is pressing on a nerve as it leaves the vertebra (through an exit called the foramen), a foraminotomy may be done. Otomy means "to make an opening." A foraminotomy is making the opening of the foramen larger, so the nerve can exit without being compressed. Laminotomy: Similar to the foraminotomy, a laminotomy makes a larger opening, this time in your bony plate protecting your spinal canal and spinal cord (the lamina). The lamina may be pressing on your nerve, so the surgeon may make more room for the nerves using a laminotomy. Laminectomy: Sometimes, a laminotomy is not sufficient. The surgeon may need to remove all or part of the lamina. This procedure is called a laminectomy. This can often be done at many levels without any harmful effects. Current Hospital Diet Patient's current hospital diet: Regular Diet Discharge Diet Recommended Diet: Regular Diet Procedures Procedures Performed: Decompression L3-S1, L4-S1 Laminectomy and Fusion Pending Studies Studies pending at discharge: no Medical Emergencies . Who to Call and When: Medical Emergencies: If at any time you feel your situation is an emergency, please call 911 immediately. . Non-Emergent Contact Non-Emergency issues call your: Primary Care Provider, Hospital Doctor . "Provider Documentation" section prepared by Pedro Luis Burgess. .
[2017-09-29 23:53] VITALS: BP 101/55; PULSE 78; TEMP 37; O2SAT 89
[2017-09-30] MEDS: DEXAMETHASONE INJ 10 MG in SYRINGE 0 ML IV SCH (00:29)
[2017-09-30] MEDS: OXYCODONE/ACETAMINOPHEN 5-325 TAB PO PRN ×2 (01:15→12:36)
[2017-09-30 03:11] VITALS: O2SAT 96
[2017-09-30 06:48] VITALS: BP 151/70; PULSE 81; TEMP 36.9; O2SAT 95
[2017-09-30] MEDS: ONDANSETRON INJ 2 MG/ML 2 ML VIAL IV PRN (07:55)
[2017-09-30] MEDS: NICOTINE 21 MG/24 HR TDSY EXT SCH (07:57)
[2017-09-30] MEDS: FLUTICASONE/SALMETEROL (ADVAIR) 500/50 INH 14 PUFF INH SCH (07:57)
[2017-09-30] MEDS: LOSARTAN POTASSIUM 50 MG TAB PO SCH (07:58)
[2017-09-30] MEDS: ASPIRIN 81 MG ECTAB PO SCH (07:58)
[2017-09-30] MEDS: POLYETHYLENE (MIRALAX) 17 GM PACK PO SCH (08:00)
[2017-09-30] MEDS: NITROFURANTOIN MONOHYDRATE 100 MG CAP PO SCH (08:38)
[2017-09-30] MEDS: THEOPHYLLINE 400 MG EXTENDED REL TAB PO SCH (08:38)
--- NOTE | 2017-09-30 12:44 | Family Medicine Progress Note ---
Progress Note Date of Service Sep 30, 2017. Subjective Pt evaluation today including: conversation w/ patient, physical exam, chart review The patient was seen and examined at bedside. No acute overnight events. Patient is resting comfortably in bed. Denies having any pain. Eating and urinating well. States that her dentures don't fit properly after surgery. Still has adams in place. Back is somewhat bothering her. Plan of care was described to the patient and all questions were answered. Constitutional: No fever, No chills ENT: No hearing loss Respiratory: No cough, No sputum, No wheezing, No shortness of breath Cardiovascular: No chest pain Abdomen: + problem reported (has adams), No pain, No nausea, No vomiting, No diarrhea, No constipation Neurologic: No memory loss Objective Physical Exam Notes: General Appearance: WD/WN, no apparent distress Head: normocephalic, atraumatic Eyes: normal inspection, PERRL Neck: supple Respiratory/Chest: chest non-tender, lungs clear, no respiratory distress, no accessory muscle use, CTA bilaterally Cardiovascular: regular rate, rhythm, no edema, no gallop, no JVD, no murmur, normal peripheral pulses Abdomen/GI: normal bowel sounds, non tender, soft, no organomegaly, no pulsatile mass Back: normal inspection, no CVA tenderness, no muscle spasm, normal range of motion Extremities/Musculoskelatal: no calf tenderness, normal capillary refill, no pedal edema, s/p R hip fx repair 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 Burgess on 09/28/2017. POD # 2 s/p Laminectomy Appears to be doing well from a post op perspective, primary team looking for placement. Defer to Dr. Burgess for pain control and anticoagulation. COPD 2/2 40+ pk year smoking history. Has been weaned onto room air. c/w Advair BID + Albuterol PRN. C/w theophylline 200mg BID. c/w Incentive spirometry. HTN Labile BPs, will continue to monitor, resume Losartan on transfer to rehab. Primary Prevention Pt advised to take an ASA for primary prevention. Holding in light of pt's recent spine surgery. Diet: Regular Dispo: Med Surg DVT Proph: Defer to primary team FULL CODE Resident Involvement: Resident Care Provided Care Provided: Adult Hospital Medicine Reviewed: Pt Seen/Exam by Me History no new concerns Constitutional: denies: fever Respiratory: negative: short of breath Cardiovascular: denies chest pain General Appearance: no apparent distress Respiratory: lungs clear, no respiratory distress Cardiovascular: regular rate, rhythm Neurologic/Psychiatric: alert, oriented x 3 Assessment/Plan Resident Physician Supervision Note: I independently interviewed and examined the patient and verified the aguilar history and physical, reviewed labs and image studies, discussed the case with the resident Dr. Ahuja and agree with the findings and care plan.
[2017-09-30 13:17] VITALS: BP 151/70; PULSE 81; TEMP 36.9; O2SAT 95
[2017-09-30 15:52] VITALS: BP 150/74; PULSE 75; TEMP 37; O2SAT 96
[2017-09-30] MEDS: LOVASTATIN 20 MG TAB PO SCH (16:12)
== END 2017-09-30 17:06 | DRG 460 ==
LOC: C.ACU 05:42 → C.3E 07:00 → ENRESERV 11:04
PROVIDERS: ADMIT Orthopaedic Surgery Orthopaedic Surgery of the Spine; ATTEND Orthopaedic Surgery Orthopaedic Surgery of the Spine
PROC: 0SG10K1 Fusion of 2 or more Lumbar Vertebral Joints with Nonautologous Tissue Substitute, Posterior Approach, Posterior Column, Open Approach (ICD-10-PCS; principal; 2017-09-28 07:30)
DX: M48.061 Spinal stenosis, lumbar region without neurogenic claudication (principal); R32 Unspecified urinary incontinence; I10 Essential (primary) hypertension; E78.00 Pure hypercholesterolemia, unspecified; J44.9 Chronic obstructive pulmonary disease, unspecified; F17.200 Nicotine dependence, unspecified, uncomplicated; Z79.899 Other long term (current) drug therapy; Z88.1 Allergy status to other antibiotic agents; Z82.49 Family history of ischemic heart disease and other diseases of the circulatory system